=== PATIENT | male | born 1965 | race African-American/Black ===

== ENCOUNTER 2016-09-05 18:18 | Observation (INO) ==
[2016-09-05] MEDS ORDERED: NITROGLYCERIN 2% OINT 1 INCH/GM PACK TOP STA (19:07)
[2016-09-05] MEDS ORDERED: ASPIRIN 325 MG TABLET PO STA (19:07)
[2016-09-05] MEDS ORDERED: LORazepam 1 MG TABLET PO STA (19:07)
[2016-09-05] MEDS ORDERED: ONDANSETRON 4 MG/2 ML VIAL IV STA (19:07)
[2016-09-05] MEDS ORDERED: ALUM/MAG/SIMETH/LIDO VISC 1:1 30 ML BOTTLE PO STA (19:07)
[2016-09-05] MEDS ORDERED: FUROSEMIDE 40 MG/4 ML VIAL IV STA (19:08)
[2016-09-05 19:17] LABS: Basophils % 0.1 % (0.0-0.8); Eosinophils # 0.1 10*3/uL (0.0-0.87); Eosinophils % 0.6 % (0.00-10.9); Hematocrit 46.3 VOL% (42.0-52.0); Hemoglobin 16.2 GM/DL (14.0-18.0); Immature Granulocytes % 0.6 %; Immature Granulocytes Absolute 0.05 #; Lymphocytes # 1.4 10*3/uL (1.4-4.0); Lymphocytes % 17.5 % (21.2-54.2); Mean Corpuscular Hemoglobin 28 PG (27-34); Mean Platelet Volume 12.4 FL (9.6-12.0); Monocytes # 0.6 10*3/uL (0.11-0.8); Monocytes % 7.5 % (1.7-12.7); Neutrophils # 5.9 10*3/uL (1.4-7.4); Neutrophils % 73.7 % (38.7-73.9); Platelet Count 256 T/CUMM (130-400); Red Blood Count 5.79 MC/CUMM (3.8-5.5); Red Cell Distribution Width 13.6 % (9.3-17.3)
[2016-09-05 19:30] LABS: D-Dimer <= 0.5 MG/L FEU
--- NOTE | 2016-09-05 19:38 | Emergency Department Note ---
Franky Mistry Rolonda, am scribing for, and in the presence of, Beka Whitten MD 19:35. Maria Dolores Mistry Charles R, MD, personally performed the services described in this documentation, ascribed by Alicja Wilkins in my presence, and it is both accurate and complete . Arrival - Arrival Chief Complaint: Shortness of Breath ED Nursing Triage Note: Brought in by EMS c/o SOB-onset two days ago. Denies chest pain. States he was seen at [facility] last night and dx with anxiety. Patient was recently dx with CHF. Mode of Arrival: Stretcher Source: Patient, Old Records Reviewed, RN Notes Reviewed Time Seen by Provider: 09/05/16 18:59 - History of Present Illness HPI Narrative: Pt is a 51 y/o male who presents to the ED via stretcher with a c/o SOB with an onset of x2 days ago. Pt has been recently Dx with CHF. Pt states that he visited the ED last night with no results. Pt states that he was sitting on the porch when his stomach began to cramp henceforth triggering SOB. Pt stated that he is scheduled for an upcoming sleep apnea exam. Pt confirms that he has difficulty catching his breath due to tightness in his chest. Pt confirms that he is currently on medication for SOB and HTN. 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 No other complaint/pain reported by the pt. Onset (ago): day(s) Consistency: constant Severity: moderate Quality: other (heaviness) Allergies/Adverse Reactions: Allergies Allergy/AdvReac Type Severity Reaction Status Date / Time RIK Inhibitors Allergy Swelling Verified 09/05/16 18:29 of Lip/Tongue/Throat Hydromorphone [From Dilaudid] Allergy ANAPHYLAXIS Verified 09/29/14 00:01 Oxycodone Allergy ANAPHYLAXIS Verified 09/29/14 00:01 Home Medications: Home Medications Medication Instructions Recorded Confirmed Type Furosemide [Furosemide] 40 mg PO QAM 09/05/16 09/05/16 History Spironolactone [Spironolactone] 25 mg PO QAM 09/05/16 09/05/16 History Theophylline ER Tab (24 Hr) 400 mg PO QAM 09/05/16 09/05/16 History hydrALAZINE TAB [Apresoline Tab] 10 mg PO BID 09/05/16 09/05/16 History predniSONE TAB [PredniSONE] 20 mg PO QAM 09/05/16 09/05/16 History Review of System - Review of System 12 point system: reviewed and no additional remarkable complaints except as stated - Review of System Constitutional: Absent: fever Eyes: Absent: discharge Head/Ears/Nose/Throat: Absent: earache Respiratory: Present: as per HPI, respiratory distress (shortness of breath) Cardiovascular: Present: chest pain (heaviness and tightness in the chest) Gastrointestinal: Present: as per HPI, abdominal pain (stomach cramps) Genitourinary male: Absent: urgency Musculoskeletal: Absent: arm pain Skin: Absent: rash Neurological: Absent: headache Psychiatric: Absent: anxiety Endocrine: Absent: cold intolerance Hematological/Lymphatic: Absent: easy bleeding Medical,Surgical,& Family Hx - Medical History Cardio: History of: CHF, Hypertension HEENT: History of: Eye Problem (wears glasses) Respiratory: History of: Obstructive Sleep Apnea - Surgical History Cardiac Surgeries: Patient Denies: Femoral-Popliteal Bypass Graft, Cardiac Catheterization, Cardiac Surgery, Carotid Endarterectomy, Internal Defibrillator, Vascular Access Devices Thoracic Surgeries: Patient denies;: Kidney (Renal Surgery), Lithotripsy, Nephrectomy, Organ Transplant, Lobectomy Neurologic Surgeries: Patient denies: Neurologic Surgery HEENT Surgeries: Patient denies: Carotid Endarterectomy, Eye Surgery, Thyroid Surgery, Tonsilectomy & Adenoidectomy Abdominal Surgeries: Patient denies: Abdominal Surgery, Appendectomy, Cholecystectomy, Colonoscopy , Gastric Bypass Surgery, EGD, Hernia Repair, Splenectomy Reproductive Surgeries: Patient denies;: Breast Surgery, Cystoscopy, Genitourinary Surgery, Prostate Surgery, Vasectomy Orthopedic Surgeries: Surgical HX of;: Orthopedic Surgery (Torn Rotator cuff with spurs and torn tendon.) - Family History Family History: Reports;: Family Cancer (daddy, brother - prostate), Family Heart Disease (mom, brother - CABG) Denies;: Family Anesthesia Reaction, Family Diabetes, Family Hypertension, Family Psychiatric Problems, Family Stroke - Social History Smoking Status: Never smoker Frequency of Alcohol Use: None Type of Drug Use: None Exam Vital Signs: Vital Signs Temperature 97.4 F L 09/05/16 18:26 Pulse Rate 93 H 09/05/16 18:35 Respiratory Rate 20 09/05/16 18:35 Blood Pressure 126/98 09/05/16 18:35 O2 Sat by Pulse Oximetry 99 09/05/16 18:35 - General General appearance: alert, in no apparent distress, other (talks congested ) - Head Head exam: Present: atraumatic, normocephalic - Eye Eye exam: Present: normal appearance, PERRL, EOMI - ENT ENT exam: Present: normal exam, normal oropharynx, mucous membranes moist. Absent: mucous membranes dry - Neck Neck exam: Present: normal inspection, full ROM. Absent: tenderness - Chest Chest inspection: Present: normal inspection, symmetric chest wall rise. Absent : tenderness - Respiratory Respiratory exam: Present: rales (faint rales at the base of lungs) - Cardiovascular Cardiovascular exam: Present: regular rate, normal rhythm, normal heart sounds. Absent: bradycardia - Abdominal Exam Abdominal exam: Present: soft, diminished bowel sounds. Absent: tenderness - Extremities Exam Extremities exam: Present: pedal edema (+1 edema lower extremeties) Course - Consultations Consultation #1: Hospitalist will admit patient Time: 19:53 Results - Labs CBC & BMP: 09/05/16 18:27 09/05/16 18:27 Lab Results: I have reviewed the patients labs Labs: Laboratory Tests 09/05/16 18:27 WBC 8.0 RBC 5.79 H Hgb 16.2 Hct 46.3 MCV 80.0 L Plt Count 256 MPV 12.4 H Lymph % (Auto) 17.5 L Laboratory Tests 09/05/16 09/05/16 18:24 18:27 INR 1.0 PT Patient/Control Mix 11.0 D-Dimer, Quantitative <= 0.5 Theophylline 5.2 L Laboratory Tests 09/05/16 09/05/16 18:27 18:27 Sodium 136 Potassium 4.0 Chloride 98 Carbon Dioxide 29 BUN 14 GFR Calculation 117 Calculated Osmolality 272.0 L B-Natriuretic Peptide < 2 L Disposition Clinical Impression: History of recently diagnosed CHF, Chest pain, Exertional dyspnea Case discussed with: patient, patient's family Disposition: Still a Patient Condition: Stable Time of Disposition: 19:53
[2016-09-05 19:40] LABS: Alanine Aminotransferase 41 U/L (16-61); Albumin 4.7 G/DL (3.4-5.0); Alkaline Phosphatase 74 U/L (45-117); Aspartate Amino Transferase 24 U/L (0-37); Blood Urea Nitrogen 14 MG/DL (7-18); Calcium 9.9 MG/DL (8.5-10.1); Glucose 104 MG/DL (74-106); Magnesium 1.9 MG/DL (1.8-2.4); Sodium 136 MMOL/L (136-145); Total Protein 8.2 G/DL (6.4-8.3); Troponin I Only < 0.015 NG/ML (0.00-0.045)
[2016-09-05] MEDS ORDERED: FUROSEMIDE 40 MG/4 ML VIAL ONE (19:41)
[2016-09-05] MEDS ORDERED: NITROGLYCERIN 2% OINT 1 INCH/GM PACK TOP ONE (19:41)
[2016-09-05] MEDS ORDERED: ONDANSETRON 4 MG/2 ML VIAL ONE (19:41)
[2016-09-05] MEDS ORDERED: ASPIRIN 325 MG TABLET ONE (19:41)
[2016-09-05] MEDS ORDERED: LORazepam 1 MG TABLET ONE (19:41)
[2016-09-05] MEDS ORDERED: ALUM/MAG/SIMETH/LIDO VISC 1:1 30 ML BOTTLE PO ONE (19:42)
--- NOTE | 2016-09-05 19:54 | XRay Report ---
XR chest 1V portable Indication: Chest pain. Chest one view: Comparison 09/29/2014. Obesity accentuates lung markings. No discrete infiltrates are seen. Heart size and mediastinal contour normal. Impression: No acute cardiopulmonary disease. PROCEDURE INTERPRETED AT [facility] Final Report Signed by: Yousuf Almodovar M.D.
[2016-09-05] MEDS ORDERED: MAGNESIUM HYDROXIDE SUSP 30 ML UDCUP PO PRN (20:11)
[2016-09-05] MEDS ORDERED: ONDANSETRON 4 MG/2 ML VIAL IV PRN (20:11)
[2016-09-05] MEDS ORDERED: BISACODYL 5 MG TABLET PO PRN (20:11)
--- NOTE | 2016-09-05 20:21 | Hospitalist History & Physical ---
Assessment and Plan (1) CHF (congestive heart failure) Status: Acute Assessment and plan: echo, hold lasix, coreg Current Visit: Yes (2) HTN (hypertension) Status: Chronic Assessment and plan: coreg and hydralazine Current Visit: No (3) unspecified sleep apnea Status: Acute Assessment and plan: sleep study pending but scheduled Current Visit: No (4) Chest pain Status: Acute Assessment and plan: chest ct for PE, serial troponins and EKG Current Visit: Yes (5) Exertional dyspnea Status: Acute Assessment and plan: chest ct Current Visit: Yes History of Present Illness Chief complaint: sob History of present illness: Mr. Romero is a 51 year old male who presents to the ED with a c/o SOB with an onset of x2 days ago. Pt has been recently Dx with CHF and BNP less than 2. Pt states that he visited the ED last night and was sent home. Pt states that he was sitting on the porch when his stomach began to cramp henceforth triggering SOB. Pt stated that he is scheduled for an upcoming sleep apnea study with Dr. Priest at [facility]. Pt confirms that he has difficulty catching his breath due to tightness in his chest. Patient has not had recent stress test. He does have HTN and Diabetes. I will order a stat chest CT to ensure he does not have a PE. Home Medications Medication Instructions Recorded Confirmed Type Furosemide [Furosemide] 40 mg PO QAM 09/05/16 09/05/16 History Spironolactone [Spironolactone] 25 mg PO QAM 09/05/16 09/05/16 History Theophylline ER Tab (24 Hr) 400 mg PO QAM 09/05/16 09/05/16 History hydrALAZINE TAB [Apresoline Tab] 10 mg PO BID 09/05/16 09/05/16 History predniSONE TAB [PredniSONE] 20 mg PO QAM 09/05/16 09/05/16 History Allergies Allergy/AdvReac Type Severity Reaction Status Date / Time RIK Inhibitors Allergy Swelling Verified 09/05/16 18:29 of Lip/Tongue/Throat Hydromorphone [From Dilaudid] Allergy ANAPHYLAXIS Verified 09/29/14 00:01 Oxycodone Allergy ANAPHYLAXIS Verified 09/29/14 00:01 Medical,Surgical,& Family Hx - Medical History Cardio: History of: CHF, Hypertension HEENT: History of: Eye Problem (wears glasses) Respiratory: History of: Obstructive Sleep Apnea - Surgical History Cardiac Surgeries: Patient Denies: Femoral-Popliteal Bypass Graft, Cardiac Catheterization, Cardiac Surgery, Carotid Endarterectomy, Internal Defibrillator, Vascular Access Devices Thoracic Surgeries: Patient denies;: Kidney (Renal Surgery), Lithotripsy, Nephrectomy, Organ Transplant, Lobectomy Neurologic Surgeries: Patient denies: Neurologic Surgery HEENT Surgeries: Patient denies: Carotid Endarterectomy, Eye Surgery, Thyroid Surgery, Tonsilectomy & Adenoidectomy Abdominal Surgeries: Patient denies: Abdominal Surgery, Appendectomy, Cholecystectomy, Colonoscopy , Gastric Bypass Surgery, EGD, Hernia Repair, Splenectomy Reproductive Surgeries: Patient denies;: Breast Surgery, Cystoscopy, Genitourinary Surgery, Prostate Surgery, Vasectomy Orthopedic Surgeries: Surgical HX of;: Orthopedic Surgery (Torn Rotator cuff with spurs and torn tendon.) - Family History Family History: Reports;: Family Cancer (daddy, brother - prostate), Family Heart Disease (mom, brother - CABG) Denies;: Family Anesthesia Reaction, Family Diabetes, Family Hypertension, Family Psychiatric Problems, Family Stroke - Social History Smoking Status: Never smoker Frequency of Alcohol Use: None Type of Drug Use: None Marital Status: Single Lives With:: Alone Functional capacity: independent ambulation - Constitutional Constitutional: Present: fatigue, headache(s), weight gain. Absent: chills, fever(s) - EENT Eyes: Absent: blurry vision, diplopia Ears: Present: decreased hearing. Absent: ear discharge Nose, mouth and throat: Present: headache(s), sore throat - Cardiovascular Cardiovascular: Present: chest pain at rest, chest pain with activity, dyspnea, dyspnea on exertion. Absent: edema - Respiratory Respiratory: Present: dyspnea, dyspnea on exertion, snoring - Gastrointestinal Gastrointestinal: Present: abdominal pain, bloating, nausea. Absent: constipation, diarrhea, vomiting - Genitourinary Genitourinary: Absent: difficulty urinating, dysuria - Neurological Neurological: Present: headache(s), paresthesias. Absent: confusion, focal weakness, syncope - Psychiatric Psychiatric: Present: anxiety. Absent: depression - Endocrine Endocrine: Present: fatigue, heat intolerance, polydipsia, polyphagia. Absent: cold intolerance - Hematologic/Lymphatic Hematologic/Lymphatic: Absent: easy bleeding, easy bruising Exam - Constitutional Vitals: Period Temp Pulse Resp BP Sys/Starr Pulse Ox Last 24 Hr 97.4 F-97.4 F 93-114 20-20 126-130/98-107 96-99 General appearance: no acute distress, morbidly obese - Head Head exam: Present: normal inspection, normocephalic - Eye Eye exam: Present: EOMI. Absent: scleral icterus Pupils: Present: KALIA, normal accommodation - ENT ENT exam: Present: normal exam, normal external ear exam - Neck Neck exam: Absent: lymphadenopathy, thyromegaly - Respiratory Respiratory exam: Present: clear to auscultation bilaterally, decreased breath sounds. Absent: rhonchi, wheezes - Cardiovascular Cardiovascular exam: Present: tachycardia. Absent: systolic murmur - GI/Abdominal GI/Abdominal exam: Present: normal bowel sounds, soft. Absent: tenderness - Extremities Exam Extremities exam: Present: normal inspection, normal capillary refill. Absent: edema - Neurological Exam Neurological exam: Present: alert, oriented X3, CN II-XII intact, reflexes normal. Absent: motor sensory deficit - Psychiatric Psychiatric exam: Present: normal affect, normal mood - Skin Skin exam: Present: normal color, warm Results - Labs CBC & BMP: 09/05/16 18:27 09/05/16 18:27 Lab Results: I have reviewed the past 24 hour labs - EKG EKG shows: sinus rhythm - Diagnostic Findings Procedure: Chest x-ray: report reviewed by me (negative )
[2016-09-05 20:47] LABS: Apearance,Urine CLEAR (Clear); Bilirubin,Urine Negative (Negative); Blood, Urine Small mg/dL (Negative); Glucose,Urine (UA) Negative (Negative); Hyaline Casts,Urine 2 /LPF (0-3); Ketones,Urine Negative (Negative); Mucus,Urine Occasional /LPF (Occasional); Nitrite,Urine Negative (Negative); Protein,Urine 30 MG/DL; RBC,Urine 1 /HPF (0-4); Urine Color Straw (Yellow); Urine Specific Gravity 1.006 (1.001-1.035); Urine Urobilinogen < 2.0 EU/DL (0.2-1.0)
[2016-09-05 20:56] LABS: Barbiturates Screen,Urine Negative (Negative); Benzodiazepines Screen,Urine Negative (Negative); Cannabinoid Screen,Urine Negative (Negative); Opiate Screen,Urine Negative (Negative); Phencyclidine Screen,Urine Negative (Negative)
--- NOTE | 2016-09-05 21:03 | CT Report ---
CT chest PE study Indication: Shortness of breath. CT CHEST WITH CONTRAST, PE PROTOCOL DLP: 996 mGy*cm. One or more of the following dose reduction techniques was used: Automated exposure control, adjustment of the mA and/or kV according the patient size, or use of iterative reconstruction techniques. Comparison: None Technique: Axial CT images of the chest were obtained during the pulmonary arterial phase of contrast injection. Coronal reconstructions were provided. Omnipaque 350, 80 cc. Findings: No pulmonary artery filling defects to the segmental level. Main pulmonary artery is normal in size. Normal heart size. No mediastinal, axillary or hilar lymphadenopathy. Lungs are clear. Pleural spaces are clear. Endplate spondylitic changes thoracic spine noted. Limited views of the upper abdomen are benign appearing. Impression: Negative CT PE study. PROCEDURE INTERPRETED AT [facility] Final Report Signed by: Yousuf Almodovar M.D.
[2016-09-05] MEDS: PANTOPRAZOLE 40 MG TABLET PO SCH (22:03)
[2016-09-05] MEDS: ATORVASTATIN 20 MG TABLET PO SCH (22:03)
[2016-09-05] MEDS: CARVEDILOL 6.25 MG TABLET PO SCH (22:03)
[2016-09-05] MEDS: hydrALAZINE 10 MG TABLET PO SCH (22:04)
[2016-09-05] MEDS: ENOXAPARIN 40 MG/0.4 ML SYRINGE SUBCUT SCH (22:04)
[2016-09-06 02:07] LABS: Risk Ratio 4.82; VLDL CHOLESTEROL 19.2 MG/DL
--- NOTE | 2016-09-06 04:27 | EKG Report ---
Stationary ECG Study [facility] ER Test Date: 09/05/2016 6:32:12 PM Pat Name: BENJAMIN PACKER Department: Room: 518 Gender: M Nurse Case Manager: : 1965 Requested by: Beka Aldridge Order Number: [id number] Reading MD: HUMBERTO WATKINS Intervals [place] Rate: 93 P: 69 NV: 140 QRS: 71 QRSD: 86 T: 50 QT: 334 QTc: 385 Interpretive Statements SINUS RHYTHM WITH MARKED SINUS ARRHYTHMIA Electronically Signed On 09-06-16 08:34:05 CDT by HUMBERTO WATKINS [email or web address]
[2016-09-06] MEDS ORDERED: FUROSEMIDE 40 MG TABLET PO SCH (09:00)
[2016-09-06] MEDS: ASPIRIN 325 MG TABLET PO SCH (09:08)
[2016-09-06] MEDS: PANTOPRAZOLE 40 MG TABLET PO SCH ×2 (09:08→20:48)
[2016-09-06] MEDS: THEOPHYLLINE ER (24 HR) 400 MG TABLET PO SCH (09:08)
[2016-09-06] MEDS: predniSONE 20 MG TABLET PO SCH (09:08)
[2016-09-06] MEDS: CARVEDILOL 6.25 MG TABLET PO SCH ×2 (09:08→20:48)
[2016-09-06] MEDS: hydrALAZINE 10 MG TABLET PO SCH ×2 (09:08→20:48)
[2016-09-06] MEDS: SPIRONOLACTONE 25 MG TABLET PO SCH (09:08)
--- NOTE | 2016-09-06 12:52 | ECHO Report ---
Jayy Romero Exam Date: 09/06/2016 08:38 Referring Physician: Technologist: Stacia Caruso Age: 51 Ht (in): 68 Wt (lb): 315 Gender: M Exam Location: [facility] Echo Indications: Chest pain, unspecified, Shortness of breath, Essential (primary) hypertension, Dyspnea, unspecified, Angio edema, CHF, NIKI BP: 144 / 65 HR: 99 Rhythm: Sinus Technical Quality: Technically difficult study IMPRESSIONS This is a technically difficult study. Normal left ventricular size and systolic function with left ventricular ejection fraction of 60-65%. There is mild concentric left ventricular hypertrophy with normal diastolic function. I do not see any significant valvular heart disease MEASUREMENTS (Male / Female) Normal Values 2D ECHO LV Diastolic Diameter PLAX 3.6 cm 4.2 - 5.9 / 3.9 - 5.3 cm LV Systolic Diameter PLAX 2.4 cm LV Fractional Shortening PLAX 32.9 % IVS Diastolic Thickness 1.7 cm 0.6 - 1.0 / 0.6 - 0.9 cm LVPW Diastolic Thickness 1.7 cm 0.6 - 1.0 / 0.6 - 0.9 cm RV Internal Dim ED PLAX 3.4 cm Aortic Root Diameter 2.5 cm LA Systolic Diameter LX 3.6 cm 3.0 - 4.0 / 2.7 - 3.8 cm FINDINGS Left Ventricle Normal left ventricular size and systolic function with left ventricular ejection fraction of 60-65%. There is mild concentric left ventricular hypertrophy with normal diastolic function. Right Ventricle The right ventricle is normal in size and function. Right Atrium The right atrium is normal in size. Left Atrium The left atrium is normal in size. Mitral Valve Morphologically normal mitral valve without significant stenosis or prolapse. There is no mitral regurgitation. Aortic Valve Morphologically normal aortic valve without significant sclerosis or stenosis. There is no aortic regurgitation. Tricuspid Valve Grossly normal tricuspid valve without significant stenosis or regurgitation. Pulmonic Valve Morphologically normal pulmonic valve without significant stenosis. There is no pulmonic regurgitation. Pericardium Normal pericardium without effusion. Aorta Normal ascending aorta dimension. Riky Goldsmith (Electronically Signed) Final Date: 06 September 2016 12:51
--- NOTE | 2016-09-06 13:09 | Cardiology Consult Note ---
I, Aviva Singletary RN, am scribing for, and in the presence of, Riky Goldsmith MD 13:05. Assessment and Plan - Time spent with patient Time spent with patient: Greater than 30 minutes (Due to assessment, planning, documentation, and medication review) (1) Chest pain Status: Acute Assessment and plan: He had a transient vague atypical chest discomfort after his abdomen began to bloat and fasciculate. His EKG is normal. His cardiac enzymes are all negative. His BNP is normal. He had a negative stress test approximately [address] angiogram is negative for pulmonary embolus or other significant abnormality. He does not have exertional anginal symptoms. From my standpoint, given his low risk screening and previous low risk cardiac evaluation, I think he could be discharged home for outpatient evaluation. He has seen Dr. Mcclendon in the past. I would set him up for a 30 day event recorder to see if he is having a transient arrhythmia that is related to his symptoms, and schedule a nuclear stress test with Dr. Mcclendon and a subsequent follow-up with her after this. Current Visit: Yes (2) Abdominal pain Status: Acute Assessment and plan: The etiology of this is unclear. He had abrupt onset of bloating and what sounds like fasciculations in his abdominal muscles. This is all resolved. If this recurs he may need evaluation by gastroenterology. Current Visit: Yes (3) Exertional dyspnea Status: Acute Assessment and plan: This appears to be a chronic issue and is likely multifactorial related to obesity, deconditioning, sleep apnea, and/or hypertension. Current Visit: Yes (4) HTN (hypertension) Status: Chronic Assessment and plan: Blood pressure has been overall well controlled. Continue as present. Current Visit: No (5) Sleep disturbance Status: Chronic Assessment and plan: Reports snoring and holding of breath at night. He also has nocturia. Reports he is being set up for sleep study with Dr. Priest at [facility]. It is noted in old clinic records that during cardiology evaluation in 2014, he was preparing for evaluation for sleep study also at that time. He did not follow through with this evaluation. Current Visit: Yes (6) Morbid obesity Status: Chronic Current Visit: Yes Qualifiers: Obesity type: due to excess calories Qualified Code(s): E66.01 - Morbid ( severe) obesity due to excess calories History of Present Illness - Data of Consult Patient: new to practice Consult date: 09/06/16 Requesting Physician: Beatris Hernandez - Consult Narrative Reason for consult: Shortness of breath, chest discomfort History of present illness: PRIMARY ARTIST'S REPRESENTATIVE: DR. MCCLENDON (LAST SEEN IN 2014) Mr. Romero is a 51 year old black male with risk factors significant for: Hypertension, morbid obesity, and he has never been a smoker. Family history positive for premature CAD as his mother had a heart attack around age 60. Past medical history includes sleep disorder, and clinically he has sleep apnea. Patient is reportedly scheduled for a sleep study with Dr. Priest at [facility]. Patient presented to [facility] ED overnight reporting that earlier in the evening he was sitting on his porch and experienced sudden onset of stomach bloating and cramping which became intense making him short of breath , and he subsequently experienced chest tightness. Cardiac enzymes negative and EKG show no acute findings. He had been seen the night before at [facility] ER, and patient tells me he was diagnosed with anxiety and CHF. BNP level drawn while in the [facility] ED last night was less than 2. CT of the chest last night negative for findings of pulmonary embolus. Patient was admitted by hospital medicine for further observation. Cardiology is now asked to see for evaluation of shortness of breath and chest discomfort. Mr. Romero has been evaluated by Dr. Mcclendon in the past but does not follow with her routinely. He was last seen by Dr. Mcclendon in September 2014 for further evaluation of some chest pain or shortness of breath he had complained of during hospital admission just prior to when he was treated for angioedema due to allergic reaction to lisinopril. At that time, he also reported exertional dyspnea, and he was not able to walk up 2 flights of stairs without being short winded. Exercise Cardiolite stress in October 2014 with normal LV systolic function and chronotropic response to exercise, no evidence of reversible ischemia. Echocardiogram while hospitalized in September 2014 also with normal LV systolic function with an EF of 60%, grade 2/4 diastolic dysfunction, mild LA enlargement, and mild pulmonary hypertension with a PA pressure 47 mmHg. Patient seen and examined. He is not experiencing any current chest tightness or shortness of breath. Reports that he is not really had any chest tightness since he was in the ambulance en route to [facility]. He tells me that he experienced a "burning" and "cramping" in the left lower and upper quadrant of the abdomen, and that his discomfort became so intense he felt short of breath. He does not generally have any exertional chest tightness or chest pain. No associated diaphoresis, nausea, vomiting, presyncope. He does have occasional palpitations when he has 1 of these spells. He also tells me that some of his same symptoms he experienced in 2015 prompting his presentation for cardiology evaluation. Reports he uses 2 pillows to sleep at night, but "by the end of the night I usually have 9". He does not describe specific orthopnea, but he does say he uses more pillows to help him be able to better move air. Nocturia approximately twice nightly. No PND or palpitations. No significant lower extremity edema. Denies dysphagia. No recent cough, chills, fever. Serial troponin levels have all been normal. Echocardiogram obtained earlier this morning, and this showed no significant abnormality and normal left ventricular systolic function. Current Medications Aspirin () 325 mg PO DAILY [facility] Last Admin: 09/06/16 09:08 Dose: 325 mg Atorvastatin Calcium (Lipitor) 20 mg PO BEDTIME [facility] Last Admin: 09/05/16 22:03 Dose: 20 mg Bisacodyl (Dulcolax Tab) 10 mg PO DAILY PRN PRN Reason: Constipation Carvedilol (Coreg) 6.25 mg PO BID [facility] Last Admin: 09/06/16 09:08 Dose: 6.25 mg Enoxaparin Sodium (Lovenox) 40 mg SUBCUT Q24H [facility] Last Admin: 09/05/16 22:04 Dose: 40 mg Hydralazine HCl (Apresoline Tab) 10 mg PO BID [facility] Last Admin: 09/06/16 09:08 Dose: 10 mg Magnesium Hydroxide (Milk Of Magnesia) 30 ml PO Q6H PRN PRN Reason: Constipation Ondansetron HCl (Zofran Inj) 4 mg IV Q4H PRN PRN Reason: Nausea/Vomiting Pantoprazole Sodium (Protonix Tab) 40 mg PO BID [facility] Last Admin: 09/06/16 09:08 Dose: 40 mg Prednisone () 20 mg PO QAM [facility] Last Admin: 09/06/16 09:08 Dose: 20 mg Spironolactone (Aldactone) 25 mg PO QAM [facility] Last Admin: 09/06/16 09:08 Dose: 25 mg Theophylline () 400 mg PO [facility] Last Admin: 09/06/16 09:08 Dose: 400 mg CC: Luci Downing MD - Home Medications and Allergies Home Medications: Home Medications Medication Instructions Recorded Confirmed Type Furosemide [Furosemide] 40 mg PO QA 09/05/16 09/05/16 History Spironolactone [Spironolactone] 25 mg PO [facility] 09/05/16 09/05/16 History Theophylline ER Tab (24 Hr) 400 mg PO [facility] 09/05/16 09/05/16 History hydrALAZINE TAB [Apresoline Tab] 10 mg PO BID 09/05/16 09/05/16 History predniSONE TAB [PredniSONE] 20 mg PO [facility] 09/05/16 09/05/16 History Allergies/Adverse Reactions: Allergies Allergy/AdvReac Type Severity Reaction Status Date / Time RIK Inhibitors Allergy Swelling Verified 09/05/16 18:29 of Lip/Tongue/Throat Hydromorphone [From Dilaudid] Allergy ANAPHYLAXIS Verified 09/29/14 00:01 Oxycodone Allergy ANAPHYLAXIS Verified 09/29/14 00:01 - Constitutional Constitutional: Present: daytime sleepiness, fatigue, stops breathing during sleep. Absent: anorexia, chills, excessive sweating, fever(s), frequent falls, increased appetite, weakness, weight gain, weight loss - EENT Eyes: Absent: blurry vision, loss of vision Ears: Absent: decreased hearing, ear pain Nose, mouth and throat: Absent: dysphagia, epistaxis, nasal congestion, neck pain, sore throat, throat swelling, tongue swelling - Cardiovascular Cardiovascular: Present: chest pain with activity, dyspnea on exertion. Absent : chest pain at rest, claudication, diaphoresis, dyspnea, edema, radiating jaw, neck or arm pain, lightheadedness, orthopnea, palpitations, PND - Respiratory Respiratory: Present: dyspnea on exertion. Absent: cough, pain on inspiration, change in phlegm color - Gastrointestinal Gastrointestinal: Absent: bloating, change in bowel habits, constipation, diarrhea, dysphagia, early satiety, heartburn, hematemesis, hematochezia, melena , nausea, vomiting, jaundice - Genitourinary Genitourinary: Present: nocturia. Absent: difficulty urinating, dysuria, flank pain, hematuria, urinary incontinence - Musculoskeletal Musculoskeletal: Absent: arthralgias, joint swelling, limited range of motion - Neurological Neurological: Absent: abnormal gait, abnormal speech, confusion, dizziness, syncope, tremor(s) - Psychiatric Psychiatric: Absent: anxiety, confusion, depression - Endocrine Endocrine: Absent: cold intolerance - Hematologic/Lymphatic Hematologic/Lymphatic: Absent: easy bruising Medical,Surgical,& Family Hx - Medical History Cardio: History of: CHF, Hypertension No history of: Cardiac Dysrhythmia, SC, Pacemaker Neurology: No history of: Dementia, Seizures, TIA HEENT: History of: Eye Problem (wears glasses) Endocrine: No history of: Diabetes Mellitus (IDDM), Diabetes Mellitus (NIDDM), Dyslipidemia, Thyroid Disorder Respiratory: History of: Obstructive Sleep Apnea (waiting on sleeep study), Pulmonary Hypertension No history of: COPD, Respiratory Problems Renal: No history of: Renal Problems Gastrointestinal: No history of: Esophageal Varices, Gastrointestinal Bleed, Hepatitis Hematology: No history of: Anemia - Surgical History Cardiac Surgeries: Patient Denies: Cardiac Catheterization, Cardiac Surgery Thoracic Surgeries: Patient denies;: Kidney (Renal Surgery) Neurologic Surgeries: Patient denies: Neurologic Surgery Orthopedic Surgeries: Surgical HX of;: Orthopedic Surgery (Torn Rotator cuff with spurs and torn tendon.) - Family History Family History: Reports;: Family Cancer (daddy, brother - prostate), Family Heart Disease (mom, brother - CABG) Denies;: Family Anesthesia Reaction, Family Diabetes, Family Hypertension, Family Psychiatric Problems, Family Stroke - Social History Smoking Status: Never smoker Frequency of Alcohol Use: None Type of Drug Use: None Marital Status: Lives With:: Spouse Functional capacity: independent ambulation Physical Examination Vital Signs Temp Pulse Resp BP Pulse Ox 97.4 F L 114 H 20 130/107 96 09/05/16 18:26 09/05/16 18:26 09/05/16 18:26 09/05/16 18:26 09/05/16 18:26 General: Present: No Apparent Distress, Other (Morbidly obese) HEENT: Present: Normocephaly, Mucus Membranes Moist. Absent: Pallor Neck: Present: Supple Neck, Midline Trachea, No JVD/HJR, No Masses, No Bruit Cardiac: Present: Reg Rate and Rhythm, No Murmur. Absent: Tachycardia, Bradycardia Lungs: Present: Clear Ascult./Percussion, Decreased Breath Sounds, Oxygen, No Wheeze, Rales, Rhonchi Neuro: Present: Grossly Intact. Absent: Numbness, Tingling, Weakness, Resting Tremor, Essential Tremor Abdomen: Present: Soft, Active Bowel Sounds, No Masses, Other (Obese). Absent: Ascites, Tender, Firm Skin: Present: Clear. Absent: Rash, Suspicious Lesions Extremities: Present: No Clubbing, No Cyanosis, No Edema, Normal Upper Extr. Pulses (3+ bilaterally), Normal Lower Extr. Pulses (3+ bilateral), Capillary Refill (Normal) Result/EKG - Labs CBC & BMP: 09/05/16 18:27 09/05/16 18:27 Lab Results: I have reviewed the past 24 hour labs Labs: Laboratory Results - last 24 hr 09/05/16 09/05/16 09/05/16 18:24 18:27 18:27 WBC RBC Hgb Hct MCV MCH MCHC RDW Plt Count MPV Neut % (Auto) Lymph % (Auto) Steele % (Auto) Eos % (Auto) Baso % (Auto) Neut # (Auto) Lymph # (Auto) Steele # (Auto) Eos # (Auto) Baso # (Auto) Immature Gran % Nucleated RBC % Immature Gran # Nucleated RBCs # INR 1.0 PT Patient/Control Mix 11.0 D-Dimer, Quantitative <= 0.5 Sodium 136 Potassium 4.0 Chloride 98 Carbon Dioxide 29 Anion Gap 13.0 BUN 14 Creatinine 1.20 GFR Calculation 117 BUN/Creatinine Ratio 11.00 Glucose 104 Hemoglobin A1c Calculated Osmolality 272.0 L Calcium 9.9 Magnesium 1.9 Total Bilirubin 0.80 AST 24 ALT 41 Alkaline Phosphatase 74 Troponin I < 0.015 B-Natriuretic Peptide Total Protein 8.2 Albumin 4.7 Globulin 3.5 Albumin/Globulin Ratio 1.3 Triglycerides Cholesterol LDL Cholesterol VLDL Cholesterol HDL Cholesterol Heart Disease Risk Ratio Lipase 161.0 Urine Color Urine Appearance Urine pH Ur Specific [place] Urine Protein Urine Glucose (UA) Urine Ketones Urine Blood Urine Nitrate Urine Bilirubin Urine Urobilinogen Urine Leukocytes Urine RBC Hyaline Casts Urine Mucus Ur Culture Indicated? Urine Opiates Screen Ur Barbiturates Screen Ur Phencyclidine Scrn U Amphetamine/Methamph U Benzodiazepines Scrn U Cocaine Metab Screen Theophylline 5.2 L U Cannabinoids Screen 06/09/05/16 09/05/16 18:27 18:27 20:35 WBC 8.0 RBC 5.79 H Hgb 16.2 Hct 46.3 MCV 80.0 L MCH 28 MCHC 35.0 RDW 13.6 Plt Count 256 MPV 12.4 H Neut % (Auto) 73.7 Lymph % (Auto) 17.5 L Steele % (Auto) 7.5 Eos % (Auto) 0.6 Baso % (Auto) 0.1 Neut # (Auto) 5.9 Lymph # (Auto) 1.4 Steele # (Auto) 0.6 Eos # (Auto) 0.1 Baso # (Auto) 0.0 Immature Gran % 0.6 Nucleated RBC % 0.0 Immature Gran # 0.05 Nucleated RBCs # 0.00 INR PT Patient/Control Mix D-Dimer, Quantitative Sodium Potassium Chloride Carbon Dioxide Anion Gap BUN Creatinine GFR Calculation BUN/Creatinine Ratio Glucose Hemoglobin A1c Calculated Osmolality Calcium Magnesium Total Bilirubin AST ALT Alkaline Phosphatase Troponin I B-Natriuretic Peptide < 2 L Total Protein Albumin Globulin Albumin/Globulin Ratio Triglycerides Cholesterol LDL Cholesterol VLDL Cholesterol HDL Cholesterol Heart Disease Risk Ratio Lipase Urine Color Straw Urine Appearance Clear Urine pH 6.0 Ur Specific [place] 1.006 Urine Protein 30 Urine Glucose (UA) Negative Urine Ketones Negative Urine Blood Small Urine Nitrate Negative Urine Bilirubin Negative Urine Urobilinogen < 2.0 H Urine Leukocytes Negative Urine RBC 1 Hyaline Casts 2 Urine Mucus Occasional Ur Culture Indicated? Not indicated Urine Opiates Screen Ur Barbiturates Screen Ur Phencyclidine Scrn U Amphetamine/Methamph U Benzodiazepines Scrn U Cocaine Metab Screen Theophylline U Cannabinoids Screen 09/05/16 09/05/16 09/05/16 20:35 21:42 Unknown WBC RBC Hgb Hct MCV MCH MCHC RDW Plt Count MPV Neut % (Auto) Lymph % (Auto) Steele % (Auto) Eos % (Auto) Baso % (Auto) Neut # (Auto) Lymph # (Auto) Steele # (Auto) Eos # (Auto) Baso # (Auto) Immature Gran % Nucleated RBC % Immature Gran # Nucleated RBCs # INR PT Patient/Control Mix D-Dimer, Quantitative Sodium Potassium Chloride Carbon Dioxide Anion Gap BUN Creatinine GFR Calculation BUN/Creatinine Ratio Glucose Hemoglobin A1c 6.2 Calculated Osmolality Calcium Magnesium Total Bilirubin AST ALT Alkaline Phosphatase Troponin I < 0.015 B-Natriuretic Peptide Total Protein Albumin Globulin Albumin/Globulin Ratio Triglycerides Cholesterol LDL Cholesterol VLDL Cholesterol HDL Cholesterol Heart Disease Risk Ratio Lipase Urine Color Urine Appearance Urine pH Ur Specific [place] Urine Protein Urine Glucose (UA) Urine Ketones Urine Blood Urine Nitrate Urine Bilirubin Urine Urobilinogen Urine Leukocytes Urine RBC Hyaline Casts Urine Mucus Ur Culture Indicated? Urine Opiates Screen Negative Ur Barbiturates Screen Negative Ur Phencyclidine Scrn Negative U Amphetamine/Methamph Negative U Benzodiazepines Scrn Negative U Cocaine Metab Screen Negative Theophylline U Cannabinoids Screen Negative 09/06/16 09/06/16 01:07 01:07 WBC RBC Hgb Hct MCV MCH MCHC RDW Plt Count MPV Neut % (Auto) Lymph % (Auto) Steele % (Auto) Eos % (Auto) Baso % (Auto) Neut # (Auto) Lymph # (Auto) Steele # (Auto) Eos # (Auto) Baso # (Auto) Immature Gran % Nucleated RBC % Immature Gran # Nucleated RBCs # INR PT Patient/Control Mix D-Dimer, Quantitative Sodium Potassium Chloride Carbon Dioxide Anion Gap BUN Creatinine GFR Calculation BUN/Creatinine Ratio Glucose Hemoglobin A1c Calculated Osmolality Calcium Magnesium Total Bilirubin AST ALT Alkaline Phosphatase Troponin I < 0.015 B-Natriuretic Peptide Total Protein Albumin Globulin Albumin/Globulin Ratio Triglycerides 96 Cholesterol 217 H LDL Cholesterol 167.0 VLDL Cholesterol 19.2 HDL Cholesterol 45 Heart Disease Risk Ratio 4.82 Lipase Urine Color Urine Appearance Urine pH Ur Specific [place] Urine Protein Urine Glucose (UA) Urine Ketones Urine Blood Urine Nitrate Urine Bilirubin Urine Urobilinogen Urine Leukocytes Urine RBC Hyaline Casts Urine Mucus Ur Culture Indicated? Urine Opiates Screen Ur Barbiturates Screen Ur Phencyclidine Scrn U Amphetamine/Methamph U Benzodiazepines Scrn U Cocaine Metab Screen Theophylline U Cannabinoids Screen - Diagnostic Findings Procedure: Chest x-ray: image reviewed by me, report reviewed by me - EKG EKG results: interpreted by me, no acute changes EKG shows: sinus rhythm IRupal Michael, MD, personally performed the services described in this documentation, ascribed by Aviva Singletary RN in my presence, and it is both accurate and complete .
--- NOTE | 2016-09-06 18:10 | Hospitalist Progress Note ---
Assessment and Plan (1) HTN (hypertension) Status: Chronic Current Visit: No (2) Exertional dyspnea Status: Acute Current Visit: Yes (3) Morbid obesity Status: Chronic Current Visit: Yes Qualifiers: Obesity type: due to excess calories Qualified Code(s): E66.01 - Morbid ( severe) obesity due to excess calories (4) Sleep disturbance Status: Chronic Current Visit: Yes Hospitalist: Subjective Interval history: No acute events overnight. Patient reports that his breathing is improved. Still on supplemental oxygen. OSH CXR and CT with epiglottic swelling noted. Will get CT neck. Exam - Constitutional Vitals: Period Temp Pulse Resp BP Sys/Starr Pulse Ox Last 24 Hr 96.9 F-98.7 F 80-114 18-30 107-144/65-107 95-100 General appearance: over weight - Head Head exam: Present: normocephalic, atraumatic - Eye Eye exam: Present: EOMI Pupils: Present: KALIA - ENT ENT exam: Present: normal exam - Neck Neck exam: Present: normal inspection - Respiratory Respiratory exam: Present: clear to auscultation bilaterally. Absent: rhonchi, wheezes - Cardiovascular Cardiovascular exam: Present: regular rate and rhythm - GI/Abdominal GI/Abdominal exam: Present: normal bowel sounds, soft. Absent: tenderness, rebound - Extremities Exam Extremities exam: Present: normal inspection - Back Exam Back exam: Present: normal inspection - Neurological Exam Neurological exam: Present: alert, oriented X3 - Psychiatric Psychiatric exam: Present: normal affect, normal mood - Skin Skin exam: Present: warm, intact Results - Labs CBC & BMP: 09/05/16 18:27 09/05/16 18:27
--- NOTE | 2016-09-06 19:05 | CT Report ---
CT soft tissue neck wo con Indication: "Swelling of the epiglottis on outside hospital chest x-ray" CT NECK WITHOUT CONTRAST DLP: 523 mGy*cm. One or more of the following dose reduction techniques was used: Automated exposure control, adjustment of the mA and/or kV according the patient size, or use of iterative reconstruction techniques. Comparison: 09/29/2014 Technique: Axial noncontrast CT images of the neck were obtained. Findings: By CT, epiglottis is normal in thickness. There is very little air space in the oropharyngeal region suggesting tonsillar enlargement. Vocal cords are symmetric and midline. No cervical chain lymphadenopathy. No subcutaneous and edema. Salivary glands are symmetric. No superior mediastinal lymphadenopathy. Pulmonary apices are clear. Impression: Normal thickness epiglottis by CT. Suspect tonsillar enlargement. Consider direct visualization. PROCEDURE INTERPRETED AT [facility] DEPARTMENT OF RADIOLOGY Final Report Signed by: Yousuf Almodovar M.D.
[2016-09-06] MEDS: ATORVASTATIN 20 MG TABLET PO SCH (20:48)
[2016-09-06] MEDS: ENOXAPARIN 40 MG/0.4 ML SYRINGE SUBCUT SCH (20:48)
[2016-09-07 06:03] LABS: Basophils % 0.2 % (0.0-0.8); Eosinophils # 0.1 10*3/uL (0.0-0.87); Eosinophils % 1.3 % (0.00-10.9); Hematocrit 45.6 VOL% (42.0-52.0); Hemoglobin 15.2 GM/DL (14.0-18.0); Immature Granulocytes % 0.5 %; Immature Granulocytes Absolute 0.04 #; Lymphocytes # 1.2 10*3/uL (1.4-4.0); Lymphocytes % 14.4 % (21.2-54.2); Mean Corpuscular HGB Conc 33.3 GM/DL (32-36); Mean Corpuscular Hemoglobin 27 PG (27-34); Mean Corpuscular Volume 81.1 FL (87-102); Mean Platelet Volume 12.2 FL (9.6-12.0); Monocytes # 0.9 10*3/uL (0.11-0.8); Monocytes % 10.3 % (1.7-12.7); Neutrophils # 6.1 10*3/uL (1.4-7.4); Neutrophils % 73.3 % (38.7-73.9); Platelet Count 223 T/CUMM (130-400); Red Blood Count 5.62 MC/CUMM (3.8-5.5); Red Cell Distribution Width 13.3 % (9.3-17.3); White Blood Count 8.4 T/CUMM (4-12)
[2016-09-07 06:22] LABS: Magnesium 2.3 MG/DL (1.8-2.4); Potassium 4.6 MMOL/L (3.5-5.1)
[2016-09-07 08:18] VITALS: BP 134/72
[2016-09-07] MEDS: CARVEDILOL 6.25 MG TABLET PO SCH (09:06)
[2016-09-07] MEDS: ASPIRIN 325 MG TABLET PO SCH (09:06)
[2016-09-07] MEDS: PANTOPRAZOLE 40 MG TABLET PO SCH (09:06)
[2016-09-07] MEDS: predniSONE 20 MG TABLET PO SCH (09:06)
[2016-09-07] MEDS: hydrALAZINE 10 MG TABLET PO SCH (09:06)
[2016-09-07] MEDS: THEOPHYLLINE ER (24 HR) 400 MG TABLET PO SCH (09:06)
[2016-09-07] MEDS: SPIRONOLACTONE 25 MG TABLET PO SCH (09:06)
--- NOTE | 2016-09-07 09:47 | Discharge Summary ---
<Go Urbina - Last Filed: 09/07/16 09:31> Hospital Course - Hospital Course Hospital Course: This is a very pleasant 51-year-old man that presented to the ED at [facility] on September 05, 2016 the evaluation of shortness of breath. The patient has a medical history significant for congestive heart failure, diabetes mellitus, obstructive sleep apnea, and hypertension. The patient reported the onset of the above symptoms 2 days prior to presentation. He reported a recent diagnosis of congestive heart failure. The patient had previously visited the ED here at [facility] on the night prior to presentation. He was evaluated and subsequently discharged home. The patient reported that he initially had stomach discomfort which subsequently caused shortness of breath. Pertinent positives include: Shortness of breath, chest tightness, and abdominal cramps; pertinent negatives include: Nausea, vomiting, jaw pain, diaphoresis, syncope, arm pain, and visual disturbances. At the time of ED presentation, the patient was assessed. Labs were obtained; hematology panel was essentially unremarkable. Coagulation panels were essentially unremarkable. Chemistry panel reported a calculated osmolality at 272.0, BNP was noted at<2. Cardiac enzymes were obtained which were noted at less than 0.015. Urinalysis and urine toxicology was essentially negative. Chest x-ray was essentially negative for any acute cardiopulmonary processes. CT chest was negative for pulmonary embolism. Echocardiogram reported an estimated left ventricular ejection fraction is 60-65% with no diastolic dysfunction. The patient was subsequently admitted to the hospitalist services for continuation of care. A cardiology consultation was requested. The patient was evaluated and recommendations were made. Serial cardiac enzymes were completed and all were essentially negative. CT soft tissue the neck was performed on September 06, 2016 which revealed normal thickness epiglottis and suspicious tonsillar enlargement. The patient's condition has greatly improved since admission. He has experienced no significant overnight events. He has now reached maximal benefit of inpatient stay and will be discharged home to follow-up with his primary care physician, high school science tutor, and ENT as indicated. Spoke with patient in great detail regarding the need to maintain medical compliance. The patient reported that he had been previously evaluated by cardiology at the time of hospital admission however failed to keep his appointments. Patient acknowledged understanding of the importance. Specialty Discharge - Follow Up or Referrals Follow up with: Darrell Erwin DO [Physician] - 2 Weeks Discharge Plan - Discharge Data Disposition: Disch To Home/Self Care - Discharge Medications New Atorvastatin [Lipitor] 20 mg PO BEDTIME #30 tablet Bisacodyl Tab [Dulcolax Tab] 10 mg PO DAILY PRN tablet PRN Reason: Constipation Carvedilol [Coreg] 6.25 mg PO BID #60 tablet Albuterol Inhaler [Proventil Inhaler] 2 puff INH Q4H PRN #1 inhaler PRN Reason: Shortness Of Breath/Wheezing Aspirin Tab 325 mg PO DAILY tablet Continue Spironolactone 25 mg PO QAM Furosemide 40 mg PO QAM Theophylline ER Tab (24 Hr) 400 mg PO QAM hydrALAZINE TAB [Apresoline Tab] 10 mg PO BID predniSONE TAB [PredniSONE] 20 mg PO QAM - Follow Up or Referral - Forms/Instructions Exam - Constitutional Vitals: Period Temp Pulse Resp BP Sys/Starr Pulse Ox Last 24 Hr 96.8 F-98.4 F 73-111 18-22 115-134/67-83 93-100 Discharge Results Labs on day of discharge: Labs from last 24 hours 09/07/16 09/07/16 05:45 05:45 WBC 8.4 RBC 5.62 H Hgb 15.2 Hct 45.6 MCV 81.1 L MCH 27 MCHC 33.3 RDW 13.3 Plt Count 223 MPV 12.2 H Neut % (Auto) 73.3 Lymph % (Auto) 14.4 L Callahan % (Auto) 10.3 Eos % (Auto) 1.3 Baso % (Auto) 0.2 Neut # (Auto) 6.1 Lymph # (Auto) 1.2 L Callahan # (Auto) 0.9 H Eos # (Auto) 0.1 Baso # (Auto) 0.0 Immature Gran % 0.5 Nucleated RBC % 0.0 Immature Gran # 0.04 Nucleated RBCs # 0.00 Sodium 136 Potassium 4.6 Chloride 99 Carbon Dioxide 32 Anion Gap 9.6 BUN 17 Creatinine 1.30 GFR Calculation 105 BUN/Creatinine Ratio 13.00 Glucose 100 Calculated Osmolality 273.0 Calcium 10.0 Magnesium 2.3 DS: Provider Date of admission: 09/05/16 20:10 Primary care physician: . No PCP Attending physician on admission: Yousuf Eaton MD Consults: 09/05/16 20:16 Consult to Physician [CONS] Routine Comment: sob, chest discomfort Consulting Provider: Evangelina Lin When should Consulting Provider be notified: In am Person Notified: LIZZIE Date Notified: 09/06/16 Time Notified: 08:05 Discharging clinician: Go Urbina CNP <Luci Downing - Last Filed: 09/07/16 11:03> Hospital Course - Time spent with patient Time with patient DS: Greater than 30 minutes (35) Diagnosis - Discharge Diagnosis (1) HTN (hypertension) Status: Chronic (2) Exertional dyspnea Status: Resolved (3) Morbid obesity Status: Chronic (4) Sleep disturbance Status: Chronic Discharge Plan - Discharge Data Condition at Discharge: Stable Discharge Diet: advance to your usual diet Activity: increase activity as tolerated Hygiene: no restrictions Weight Bearing at Discharge: weight bear as tolerated Driving: no restrictions Contact your physician if you experience:: Shortness of breath Exam - Constitutional General appearance: over weight - Head Head exam: Present: normocephalic, atraumatic - Eye Eye exam: Present: EOMI Pupils: Present: KALIA - ENT ENT exam: Present: normal exam - Neck Neck exam: Present: normal inspection - Respiratory Respiratory exam: Present: clear to auscultation bilaterally. Absent: rhonchi, wheezes - Cardiovascular Cardiovascular exam: Present: regular rate and rhythm - GI/Abdominal GI/Abdominal exam: Present: normal bowel sounds, soft. Absent: tenderness, rebound - Extremities Exam Extremities exam: Present: normal inspection - Back Exam Back exam: Present: normal inspection - Neurological Exam Neurological exam: Present: alert, oriented X3 - Psychiatric Psychiatric exam: Present: normal affect, normal mood - Skin Skin exam: Present: warm, intact
--- NOTE | 2016-09-07 13:33 | Cardiology Progress Note ---
I, Aviva Singletary RN, am scribing for, and in the presence of, Riky Goldsmith MD 13:32. Assessment and Plan - Time spent with patient Time spent with patient: Greater than 30 minutes (1) Palpitations Status: Acute Assessment and plan: 30 day event monitor as an outpt with f/u with Dr. Marshall. (2) Chest pain Status: Acute Assessment and plan: He had a transient vague atypical chest discomfort after his abdomen began to bloat and fasciculate. His EKG is normal. His cardiac enzymes are all negative. His BNP is normal. He had a negative stress test approximately [address] angiogram is negative for pulmonary embolus or other significant abnormality. He does not have exertional anginal symptoms. From my standpoint, given his low risk screening and previous low risk cardiac evaluation, I think he could be discharged home for outpatient evaluation. He has seen Dr. Mcclendon in the past. I would set him up for a 30 day event recorder to see if he is having a transient arrhythmia that is related to his symptoms, and schedule a nuclear stress test with Dr. Mcclendon and a subsequent follow-up with her after this. (3) Abdominal pain Status: Acute Assessment and plan: Unclear etiology. Patient did have previous abrupt onset of bloating and what is described as fasciculations of the abdominal muscles. The symptoms have since resolved. If this does recur, he may need evaluation by gastroenterology. (4) Exertional dyspnea Status: Resolved Assessment and plan: This appears to be somewhat of a chronic issue and most likely multifactorial related to morbid obesity, deconditioning, sleep apnea, hypertension. (5) HTN (hypertension) Status: Chronic Assessment and plan: Blood pressure has been overall well controlled. Continue as present. (6) Sleep disturbance Status: Chronic Assessment and plan: Reports snoring and holding of breath at night. He also has nocturia. Reports he is scheduled for a sleep study on September [address] Priest at [facility]. (7) Morbid obesity Status: Chronic Qualifiers: Obesity type: due to excess calories Qualified Code(s): E66.01 - Morbid ( severe) obesity due to excess calories Cardiology - PN: Subj Interval history: PRIMARY TUBE DEPATCHER: DR. MCCLENDON (LAST SEEN IN 2014) Mr. Romero is a 51 year old black male with risk factors significant for: Hypertension, morbid obesity, and he has never been a smoker. Family history positive for premature CAD as his mother had a heart attack around age 60. Past medical history includes sleep disorder, and clinically he has sleep apnea. Patient is reportedly scheduled for a sleep study with Dr. Priest at [facility]. Patient presented to [facility] ED overnight reporting that earlier in the evening he was sitting on his porch and experienced sudden onset of stomach bloating and cramping which became intense making him short of breath , and he subsequently experienced chest tightness. Cardiac enzymes negative and EKG show no acute findings. He had been seen the night before at [facility] ER, and patient tells me he was diagnosed with anxiety and CHF. BNP level drawn while in the [facility] ED last night was less than 2. CT of the chest last night negative for findings of pulmonary embolus. Patient was admitted by hospital medicine for further observation. Cardiology was asked to see patient for evaluation of shortness of breath and chest discomfort. Mr. Romero has been evaluated by Dr. Mcclendon in the past but does not follow with her routinely. He was last seen by Dr. Mcclendon in September 2014 for further evaluation of some chest pain or shortness of breath he had complained of during hospital admission just prior to when he was treated for angioedema due to allergic reaction to lisinopril. At that time, he also reported exertional dyspnea, and he was not able to walk up 2 flights of stairs without being short winded. Exercise Cardiolite stress in October 2014 with normal LV systolic function and chronotropic response to exercise, no evidence of reversible ischemia. Echocardiogram while hospitalized in September 2014 also with normal LV systolic function with an EF of 60%, grade 2/4 diastolic dysfunction, mild LA enlargement, and mild pulmonary hypertension with a PA pressure 47 mmHg. August UPDATE: Echocardiogram obtained yesterday with no significant change from study and 2015. Patient has normal LV size and systolic function with EF 60-65%, mild LVH , and normal diastolic dysfunction. Cardiac monitoring has revealed sinus rhythm. Patient is awake and alert this morning, and he is sitting up in bedside chair. Fair appetite this morning, he is not having any nausea, vomiting, or abdominal discomfort or "burning." Reports he received a laxative last night for constipation with good results this morning. Patient states he experienced some lightheadedness earlier this morning prompting him to get out of bed and up to chair, and he says when he felt lightheaded, he could also feel his heart "racing away" though monitoring shows only NSR. Systolic BP 115- 135 mmHg. Labs reviewed and overall unremarkable. Electrolytes are within acceptable range. Current Medications Aspirin () 325 mg PO DAILY [facility] Last Admin: 09/06/16 09:08 Dose: 325 mg Atorvastatin Calcium (Lipitor) 20 mg PO BEDTIME [facility] Last Admin: 09/06/16 20:48 Dose: 20 mg Bisacodyl (Dulcolax Tab) 10 mg PO DAILY PRN PRN Reason: Constipation Last Admin: 09/06/16 22:04 Dose: 10 mg Carvedilol (Coreg) 6.25 mg PO BID [facility] Last Admin: 09/06/16 20:48 Dose: 6.25 mg Enoxaparin Sodium (Lovenox) 40 mg SUBCUT Q24H [facility] Last Admin: 09/06/16 20:48 Dose: 40 mg Hydralazine HCl (Apresoline Tab) 10 mg PO BID [facility] Last Admin: 09/06/16 20:48 Dose: 10 mg Magnesium Hydroxide (Milk Of Magnesia) 30 ml PO Q6H PRN PRN Reason: Constipation Ondansetron HCl (Zofran Inj) 4 mg IV Q4H PRN PRN Reason: Nausea/Vomiting Pantoprazole Sodium (Protonix Tab) 40 mg PO BID [facility] Last Admin: 09/06/16 20:48 Dose: 40 mg Prednisone () 20 mg PO [facility] Last Admin: 09/06/16 09:08 Dose: 20 mg Spironolactone (Aldactone) 25 mg PO [facility] Last Admin: 09/06/16 09:08 Dose: 25 mg Theophylline () 400 mg PO [facility] Last Admin: 09/06/16 09:08 Dose: 400 mg Exam (Progress Note) - Constitutional Vitals: Period Temp Pulse Resp BP Sys/Starr Pulse Ox Last 24 Hr 96.8 F-98.3 F 73-111 18-22 115-130/67-83 93-98 Exam: General: Present: No Apparent Distress, Other (Morbidly obese) HEENT: Present: Normocephaly, Mucus Membranes Moist. Absent: Pallor Neck: Present: Supple Neck, Midline Trachea, No JVD/HJR, No Masses, No Bruit Cardiac: Present: Reg Rate and Rhythm, No Murmur. Absent: Tachycardia, Bradycardia Lungs: Present: Clear Ascult./Percussion, Decreased Breath Sounds, Oxygen, No Wheeze, Rales, Rhonchi Neuro: Present: Grossly Intact. Absent: Numbness, Tingling, Weakness, Resting Tremor, Essential Tremor Abdomen: Present: Soft, Active Bowel Sounds, No Masses, Other (Obese). Absent: Ascites, Tender, Firm Skin: Present: Clear. Absent: Rash, Suspicious Lesions Extremities: Present: No Clubbing, No Cyanosis, No Edema, Normal Upper Extr. Pulses (3+ bilaterally), Normal Lower Extr. Pulses (3+ bilateral), Capillary Refill (Normal) Result/EKG - Labs CBC & BMP: 09/07/16 05:45 09/07/16 05:45 Lab Results: I have reviewed the past 24 hour labs Labs: Laboratory Results - last 24 hr 09/07/16 09/07/16 05:45 05:45 WBC 8.4 RBC 5.62 H Hgb 15.2 Hct 45.6 MCV 81.1 L MCH 27 MCHC 33.3 RDW 13.3 Plt Count 223 MPV 12.2 H Neut % (Auto) 73.3 Lymph % (Auto) 14.4 L Caroline % (Auto) 10.3 Eos % (Auto) 1.3 Baso % (Auto) 0.2 Neut # (Auto) 6.1 Lymph # (Auto) 1.2 L Caroline # (Auto) 0.9 H Eos # (Auto) 0.1 Baso # (Auto) 0.0 Immature Gran % 0.5 Nucleated RBC % 0.0 Immature Gran # 0.04 Nucleated RBCs # 0.00 Sodium 136 Potassium 4.6 Chloride 99 Carbon Dioxide 32 Anion Gap 9.6 BUN 17 Creatinine 1.30 GFR Calculation 105 BUN/Creatinine Ratio 13.00 Glucose 100 Calculated Osmolality 273.0 Calcium 10.0 Magnesium 2.3 - EKG EKG results: interpreted by me, no acute changes EKG shows: sinus rhythm Specialty Discharge - Follow Up or Referrals Follow up with: Darrell Erwin DO [Physician] - 2 Weeks (We will call you on Saturday to give you this appointment) I, Riky Goldsmith MD, personally performed the services described in this documentation, ascribed by Aviva Singletary RN in my presence, and it is both accurate and complete 333 .
== END 2016-09-07 12:00 | disposition home or self-care (01) ==
LOC: EDBD → EDUNIT# → N.ED 18:18 → N.EDINP 18:18 → SUATTDRO 20:10 → N.EDINP 20:59 → N.5E 21:11
PROVIDERS: ADMIT Internal Medicine; ATTEND Internal Medicine

== ENCOUNTER 2018-05-12 11:39 | Observation (INO) ==
[2018-05-12] MEDS ORDERED: ONDANSETRON 4 MG/2 ML VIAL IV STA (12:01)
[2018-05-12 12:23] LABS: Basophils % 0.4 % (0.0-0.8); Eosinophils # 0.1 10*3/uL (0.0-0.87); Eosinophils % 0.7 % (0.00-10.9); Hematocrit 49.4 VOL% (42.0-52.0); Hemoglobin 16.2 GM/DL (14.0-18.0); Immature Granulocytes % 0.5 %; Immature Granulocytes Absolute 0.04 #; Lymphocytes # 1.6 10*3/uL (1.4-4.0); Lymphocytes % 18.8 % (21.2-54.2); Mean Corpuscular HGB Conc 32.8 GM/DL (32-36); Mean Corpuscular Hemoglobin 26 PG (27-34); Mean Corpuscular Volume 79.8 FL (87-102); Mean Platelet Volume 12.4 FL (9.6-12.0); Monocytes # 0.9 10*3/uL (0.11-0.8); Monocytes % 11.2 % (1.7-12.7); Neutrophils # 5.7 10*3/uL (1.4-7.4); Neutrophils % 68.4 % (38.7-73.9); Platelet Count 268 T/CUMM (130-400); Red Blood Count 6.19 MC/CUMM (3.8-5.5); Red Cell Distribution Width 13.9 % (9.3-17.3); White Blood Count 8.3 T/CUMM (4-12)
[2018-05-12 12:46] LABS: Albumin 4.9 G/DL (3.4-5.0); Bilirubin,Total 1.2 MG/DL (0.2-1.0); Calcium 9.7 MG/DL (8.5-10.1); Total Protein 9.2 G/DL (6.4-8.3)
[2018-05-12 14:01] LABS: Apearance,Urine CLEAR (Clear); Bilirubin,Urine Negative (Negative); Blood, Urine Moderate mg/dL (Negative); Glucose,Urine (UA) >=500 mg/dL (Negative); Ketones,Urine Negative (Negative); Mucus,Urine Occasional /LPF (Occasional); Nitrite,Urine Negative (Negative); Protein,Urine 30 MG/DL; RBC,Urine <1 /HPF (0-4); Urine Color Yellow (Yellow); Urine Specific Gravity 1.014 (1.001-1.035); Urine Urobilinogen < 2.0 EU/DL (0.2-1.0); WBC,Urine 1 /HPF (0-6)
[2018-05-12] MEDS ORDERED: ONDANSETRON 4 MG/2 ML VIAL IV PRN (19:00)
[2018-05-12] MEDS ORDERED: KETOROLAC 15 MG/1 ML VIAL IV PRN (19:00)
[2018-05-12] MEDS ORDERED: ACETAMINOPHEN 325 MG TABLET PO PRN (19:00)
[2018-05-12] MEDS: DEXTROSE 5% LACTATED RINGERS 1,000 ML IV SCH (19:56)
[2018-05-13] MEDS: DEXTROSE 5% LACTATED RINGERS 1,000 ML IV SCH ×3 (03:37→17:11)
[2018-05-13] MEDS: PANTOPRAZOLE 40 MG VIAL IV SCH (08:31)
[2018-05-13] MEDS ORDERED: PANTOPRAZOLE 40 MG TABLET PO SCH (09:00)
[2018-05-13] MEDS ORDERED: ALBUTEROL 2.5 MG/3 ML NEB RESP TX PRN (11:00)
[2018-05-13 11:04] LABS: Albumin 4.4 G/DL (3.4-5.0); Bilirubin,Total 0.8 MG/DL (0.2-1.0); Calcium 9.5 MG/DL (8.5-10.1); Total Protein 8.9 G/DL (6.4-8.3)
[2018-05-13 11:05] LABS: Osmolality,Calculated 276.8 MOS/KG (273-304); Potassium 3.9 MMOL/L (3.5-5.1)
[2018-05-13] MEDS ORDERED: CHLORTHALIDONE 25 MG TABLET PO ONE (12:46)
[2018-05-13] MEDS ORDERED: ATENOLOL 50 MG TABLET PO ONE (12:46)
[2018-05-13] MEDS ORDERED: hydrALAZINE 20 MG/1 ML VIAL IV PRN (14:55)
[2018-05-13] MEDS: buPROPion XL 150 MG TABLET PO SCH (21:12)
[2018-05-14] MEDS: DEXTROSE 5% LACTATED RINGERS 1,000 ML IV SCH ×3 (01:22→16:36)
[2018-05-14 05:27] LABS: Basophils % 0.5 % (0.0-0.8); Eosinophils # 0.1 10*3/uL (0.0-0.87); Hemoglobin 15.1 GM/DL (14.0-18.0); Immature Granulocytes % 0.3 %; Immature Granulocytes Absolute 0.02 #; Lymphocytes # 1.8 10*3/uL (1.4-4.0); Lymphocytes % 27.7 % (21.2-54.2); Mean Corpuscular HGB Conc 32.8 GM/DL (32-36); Mean Corpuscular Hemoglobin 26 PG (27-34); Mean Corpuscular Volume 80.6 FL (87-102); Mean Platelet Volume 12.5 FL (9.6-12.0); Monocytes # 0.9 10*3/uL (0.11-0.8); Monocytes % 13.9 % (1.7-12.7); Neutrophils # 3.6 10*3/uL (1.4-7.4); Neutrophils % 55.6 % (38.7-73.9); Platelet Count 209 T/CUMM (130-400); Red Blood Count 5.71 MC/CUMM (3.8-5.5); Red Cell Distribution Width 13.6 % (9.3-17.3); White Blood Count 6.5 T/CUMM (4-12)
[2018-05-14 05:42] LABS: Potassium 3.7 MMOL/L (3.5-5.1)
[2018-05-14 05:47] LABS: Risk Ratio 6.27; VLDL CHOLESTEROL 17.4 MG/DL
[2018-05-14] MEDS ORDERED: Phentermine Hcl [Adipex-P] 37.5 MG PO SCH (09:00)
[2018-05-14] MEDS ORDERED: Canagliflozin [Invokana] 300 MG PO SCH (09:00)
[2018-05-14] MEDS: ASPIRIN EC 81 MG TABLET PO SCH (12:36)
[2018-05-14] MEDS: POTASSIUM CHLORIDE 20 MEQ TABLET PO SCH (12:37)
[2018-05-14] MEDS: ATENOLOL 50 MG TABLET PO SCH (12:37)
[2018-05-14] MEDS: PANTOPRAZOLE 40 MG VIAL IV SCH (12:37)
[2018-05-14] MEDS: CHLORTHALIDONE 25 MG TABLET PO SCH (12:37)
[2018-05-14] MEDS: FUROSEMIDE 20 MG TABLET PO SCH (12:37)
[2018-05-14 13:23] LABS: Hepatitis A Ab IgM Quant 0.24 Index; Hepatitis A Ab IgM Result Negative (Negative); Hepatitis B Core IgM Quant 0.08 Index; Hepatitis B Core IgM Result Negative (Negative); Hepatitis B Surface Ag Quant < 0.10 Index; Hepatitis B Surface Ag Result Negative (Negative); Hepatitis C Virus Ab Quant 0.07 Index; Hepatitis C Virus Ab Result Negative (Negative)
[2018-05-14] MEDS ORDERED: ENOXAPARIN 40 MG/0.4 ML SYRINGE SUBCUT SCH (16:30)
[2018-05-14] MEDS: buPROPion XL 150 MG TABLET PO SCH (22:36)
[2018-05-15] MEDS ORDERED: BISACODYL 5 MG TABLET PO PRN (03:51)
[2018-05-15 04:55] LABS: Basophils % 0.4 % (0.0-0.8); Eosinophils # 0.2 10*3/uL (0.0-0.87); Eosinophils % 2.4 % (0.00-10.9); Hematocrit 47.4 VOL% (42.0-52.0); Hemoglobin 15.3 GM/DL (14.0-18.0); Immature Granulocytes % 0.3 %; Immature Granulocytes Absolute 0.02 #; Lymphocytes # 2.2 10*3/uL (1.4-4.0); Lymphocytes % 30.7 % (21.2-54.2); Mean Corpuscular HGB Conc 32.3 GM/DL (32-36); Mean Corpuscular Hemoglobin 26 PG (27-34); Mean Corpuscular Volume 81.2 FL (87-102); Mean Platelet Volume 12.3 FL (9.6-12.0); Monocytes # 0.8 10*3/uL (0.11-0.8); Monocytes % 11.4 % (1.7-12.7); Neutrophils # 3.9 10*3/uL (1.4-7.4); Neutrophils % 54.8 % (38.7-73.9); Platelet Count 232 T/CUMM (130-400); Red Blood Count 5.84 MC/CUMM (3.8-5.5); Red Cell Distribution Width 13.5 % (9.3-17.3); White Blood Count 7.1 T/CUMM (4-12)
[2018-05-15 05:29] LABS: Calcium 9.2 MG/DL (8.5-10.1); Potassium 4.2 MMOL/L (3.5-5.1)
[2018-05-15] MEDS: FUROSEMIDE 20 MG TABLET PO SCH (08:36)
[2018-05-15] MEDS: ATENOLOL 50 MG TABLET PO SCH (08:36)
[2018-05-15] MEDS: ASPIRIN EC 81 MG TABLET PO SCH (08:36)
[2018-05-15] MEDS: POTASSIUM CHLORIDE 20 MEQ TABLET PO SCH (08:36)
[2018-05-15] MEDS: CHLORTHALIDONE 25 MG TABLET PO SCH (08:36)
[2018-05-15] MEDS: PANTOPRAZOLE 40 MG VIAL IV SCH (08:41)
[2018-05-15] MEDS: POLYETHYLENE GLYCOL POWDER 17 GM PACK PO SCH (12:15)
[2018-05-15] MEDS: buPROPion XL 150 MG TABLET PO SCH ×2 (21:20)
[2018-05-16 05:19] LABS: Basophils % 0.4 % (0.0-0.8); Eosinophils # 0.1 10*3/uL (0.0-0.87); Eosinophils % 1.2 % (0.00-10.9); Hematocrit 47.9 VOL% (42.0-52.0); Hemoglobin 15.5 GM/DL (14.0-18.0); Immature Granulocytes % 0.3 %; Immature Granulocytes Absolute 0.02 #; Lymphocytes # 1.8 10*3/uL (1.4-4.0); Lymphocytes % 26.6 % (21.2-54.2); Mean Corpuscular HGB Conc 32.4 GM/DL (32-36); Mean Corpuscular Hemoglobin 26 PG (27-34); Mean Corpuscular Volume 80.2 FL (87-102); Mean Platelet Volume 12.6 FL (9.6-12.0); Monocytes # 0.7 10*3/uL (0.11-0.8); Monocytes % 10.2 % (1.7-12.7); Neutrophils # 4.2 10*3/uL (1.4-7.4); Neutrophils % 61.3 % (38.7-73.9); Platelet Count 241 T/CUMM (130-400); Red Blood Count 5.97 MC/CUMM (3.8-5.5); Red Cell Distribution Width 13.4 % (9.3-17.3); White Blood Count 6.9 T/CUMM (4-12)
[2018-05-16 05:38] LABS: Calcium 9.4 MG/DL (8.5-10.1); Osmolality,Calculated 274.8 MOS/KG (273-304); Potassium 3.9 MMOL/L (3.5-5.1)
[2018-05-16] MEDS: CHLORTHALIDONE 25 MG TABLET PO SCH (08:45)
[2018-05-16] MEDS: ATENOLOL 50 MG TABLET PO SCH (08:45)
[2018-05-16] MEDS: FUROSEMIDE 20 MG TABLET PO SCH (08:45)
[2018-05-16] MEDS: PANTOPRAZOLE 40 MG VIAL IV SCH (08:46)
[2018-05-16] MEDS ORDERED: LIDOCAINE 100 MG/5 ML SYRINGE ONE (09:00)
[2018-05-16] MEDS ORDERED: PROPOFOL 200 MG/20 ML VIAL IV ONE (09:00)
[2018-05-16] MEDS: POLYETHYLENE GLYCOL POWDER 17 GM PACK PO SCH (10:35)
[2018-05-16] MEDS: ASPIRIN EC 81 MG TABLET PO SCH (10:35)
[2018-05-16] MEDS: POTASSIUM CHLORIDE 20 MEQ TABLET PO SCH (10:35)
[2018-05-16] MEDS: buPROPion XL 150 MG TABLET PO SCH (20:50)
[2018-05-17 08:39] VITALS: BP 180/96
[2018-05-17] MEDS: PANTOPRAZOLE 40 MG VIAL IV SCH (08:52)
[2018-05-17] MEDS: POTASSIUM CHLORIDE 20 MEQ TABLET PO SCH (08:53)
[2018-05-17] MEDS: POLYETHYLENE GLYCOL POWDER 17 GM PACK PO SCH (08:54)
[2018-05-17] MEDS: FUROSEMIDE 20 MG TABLET PO SCH (08:54)
[2018-05-17] MEDS: ATENOLOL 50 MG TABLET PO SCH (08:54)
[2018-05-17] MEDS: ASPIRIN EC 81 MG TABLET PO SCH (08:54)
[2018-05-17] MEDS: CHLORTHALIDONE 25 MG TABLET PO SCH (08:54)
[2018-06-17] MEDS ORDERED: BISACODYL 5 MG TABLET PO ONE (12:00)
[2018-06-17] MEDS ORDERED: POLYETHYLENE GLYCOL POWDER 255 GM BOTTLE PO ONE (18:00)
== END 2018-05-17 12:02 | disposition home or self-care (01) ==
LOC: N.EDINP 11:39 → N.ED 11:39 → N.3E 19:31 → N.SDSINP 19:31 → N.3E 19:40 → UNDODISOB 05-17 12:02
PROVIDERS: ADMIT Surgery; ATTEND Surgery